=== PATIENT | female | born 1960 | race Caucasian/White ===

== ENCOUNTER → 2017-12-13 05:00 | Outpatient (REF) | payer MEDICARE, SELFPAY ==
[2017-12-13 07:31] LABS: Prothrombin Time Fingerstick 20.6 SEC (11.9-14.4)
== END ==
LOC: OLS.ACW100 05:00
PROVIDERS: Visit Provider Family Medicine
DX: R69 Illness, unspecified (principal)
CPT/HCPCS: 36416; 85610

== ENCOUNTER → 2017-12-18 05:00 | Outpatient (REF) | payer MEDICARE, SELFPAY ==
[2017-12-18 09:18] LABS: International Normalized Ratio 2.7; Prothrombin Time (Protime)PT. 29.2 SECONDS (11.7-14.9)
== END ==
LOC: OLS.ACW100 05:00
PROVIDERS: Visit Provider Family Medicine
DX: I82.91 Chronic embolism and thrombosis of unspecified vein (principal); Z75.5 Holiday relief care; E11.9 Type 2 diabetes mellitus without complications; D64.9 Anemia, unspecified; E53.9 Vitamin B deficiency, unspecified; F25.9 Schizoaffective disorder, unspecified
CPT/HCPCS: 36415; 85610

== ENCOUNTER → 2017-12-21 05:00 | Outpatient (REF) | payer MEDICARE, SELFPAY ==
[2017-12-21 08:00] LABS: Prothrombin Time Fingerstick 37.9 SEC (11.9-14.4)
== END ==
LOC: OLS.ACW100 05:00
PROVIDERS: Visit Provider Family Medicine
DX: I82.91 Chronic embolism and thrombosis of unspecified vein (principal); Z75.5 Holiday relief care; E11.9 Type 2 diabetes mellitus without complications; D64.9 Anemia, unspecified; E53.9 Vitamin B deficiency, unspecified; F25.9 Schizoaffective disorder, unspecified
CPT/HCPCS: 36416; 85610

== ENCOUNTER → 2017-12-22 05:50 | Outpatient (REF) | payer MEDICARE, SELFPAY ==
[2017-12-22 08:23] LABS: International Normalized Ratio 2.5; Prothrombin Time (Protime)PT. 27.5 SECONDS (11.7-14.9)
== END ==
LOC: OLS.ACW100 05:50
PROVIDERS: Visit Provider Family Medicine
DX: I82.91 Chronic embolism and thrombosis of unspecified vein (principal); Z75.5 Holiday relief care; E11.9 Type 2 diabetes mellitus without complications; D64.9 Anemia, unspecified; E53.9 Vitamin B deficiency, unspecified; F25.9 Schizoaffective disorder, unspecified
CPT/HCPCS: 36415; 85610

== ENCOUNTER → 2017-12-24 05:00 | Outpatient (REF) | payer MEDICARE, SELFPAY ==
[2017-12-24 09:50] LABS: Prothrombin Time Fingerstick 25.3 SEC (11.9-14.4)
== END ==
LOC: OLS.ACW100 05:00
PROVIDERS: Visit Provider Family Medicine
DX: I82.91 Chronic embolism and thrombosis of unspecified vein (principal); Z75.5 Holiday relief care; E11.9 Type 2 diabetes mellitus without complications; D64.9 Anemia, unspecified; E53.9 Vitamin B deficiency, unspecified; F25.9 Schizoaffective disorder, unspecified
CPT/HCPCS: 36416; 85610

== ENCOUNTER → 2017-12-27 05:00 | Outpatient (REF) | payer MEDICARE, SELFPAY ==
[2017-12-27 07:56] LABS: Hematocrit 37.9 % (37-47); Hemoglobin 12.2 g/dl (12.0-15.0); Mean Corp Hgb Conc 32.2 g/gl (32-36); Mean Corpuscular Hgb 30.6 pg (27.0-32.0); Mean Platelet Vol. 9.4 fl (6.2-12.0); Platelet Count 248 K/mm3 (150-450); RBC Distribution Width CV 14.1 % (11.6-14.6); RBC Distribution Width SD 47.4 fl (35.1-43.9); Red Blood Count 3.99 M/mm3 (4.2-5.4)
[2017-12-27 08:01] LABS: International Normalized Ratio 2.5; Prothrombin Time (Protime)PT. 26.7 SECONDS (11.7-14.9)
[2017-12-27 08:02] LABS: Scan Indicated on CBC? Y/N NO
[2017-12-27 08:21] LABS: AST(SGOT) 11 U/L (15-37); Alanine Aminotransfer ALT/SGPT 24 U/L (13-56); Albumin, Serum 3.1 g/dL (3.2-5.0); Alkaline Phosphatase 67 U/L (45-117); Anion Gap 7 (5-15); BUN 10 mg/dL (7-18); BUN/Creat Ratio 13.3 RATIO (10-20); Calcium,Total 8.5 mg/dL (8.5-10.1); Chloride 103 mmol/L (98-107); Cholesterol 211 mg/dL (200); Creatinine, Serum 0.75 mg/dL (0.55-1.02); EST Glomerular Filtration Rate 83 mL/min (>60); Est Glom Filt Rate - Afr Amer 101 mL/min (>60); Glucose 162 mg/dL (74-106); High Density Lipoprotein 45 mg/dL; Potassium 4.4 mmol/L (3.5-5.1); Protein, Total 6.1 g/dL (6.4-8.2); Sodium Level 139 mmol/L (136-145); Thyroid Stim Hormone (TSH) 1.33 uIU/mL (0.358-3.74); Triglycerides 207 mg/dL; Very Low Density Lipoprotein 41 mg/dL (5-40)
[2017-12-28 08:34] LABS: Vitamin D,25 Hydroxy 18.3 ng/mL (29.95-100.01)
== END ==
LOC: OLS.ACW100 05:00
PROVIDERS: Visit Provider Family Medicine
DX: I82.91 Chronic embolism and thrombosis of unspecified vein (principal); Z75.5 Holiday relief care; E11.9 Type 2 diabetes mellitus without complications; D64.9 Anemia, unspecified; E53.9 Vitamin B deficiency, unspecified; F25.9 Schizoaffective disorder, unspecified
CPT/HCPCS: 36415; 80053; 80061; 82306; 83036; 84443; 85027; 85610

== ENCOUNTER → 2017-12-31 04:00 | Outpatient (REF) | payer MEDICARE, SELFPAY ==
[2017-12-31 08:10] LABS: Prothrombin Time Fingerstick 37.7 SEC (11.9-14.4)
== END ==
LOC: OLS.ACW100 04:00
PROVIDERS: Visit Provider Family Medicine
DX: I82.91 Chronic embolism and thrombosis of unspecified vein (principal); Z75.5 Holiday relief care; E11.9 Type 2 diabetes mellitus without complications; D64.9 Anemia, unspecified; E53.9 Vitamin B deficiency, unspecified; F25.9 Schizoaffective disorder, unspecified
CPT/HCPCS: 36416; 85610